=== PATIENT | male | born 1950 | race Caucasian/White ===

== ENCOUNTER 2019-04-07 09:07 | Day surgery (SDC) | payer MEDICARE, MEDICAID ==
[~2019-04-07] VITALS: Ht 167.6 cm; Wt 88.9 kg
[2019-04-07] MEDS ORDERED: GEMF600T5 PO (10:29)
[2019-04-07] MEDS ORDERED: BICT1TAB PO (10:29)
[2019-04-07] MEDS ORDERED: IBUP-2029 PO (10:29)
[2019-04-07] MEDS ORDERED: LIDOCAINE HCL 1% 20ML VIAL (Pyxis) INJ ONE (10:42)
[2019-04-07] MEDS ORDERED: FENTANYL CITRATE/PF 50MCG/ML 2ML VIAL ONE (10:42)
[2019-04-07] MEDS ORDERED: MIDAZOLAM HCL 2 MG/2 ML VIAL ONE (10:42)
[2019-04-07] MEDS ORDERED: IODIXANOL 320MG/ML 100 ML BOTTLE IV ONE (10:42)
[2019-04-07] MEDS ORDERED: ONDANSETRON HCL 4MG/2ML INJ IV PRN (11:45)
[2019-04-07] MEDS ORDERED: ACETAMINOPHEN 325MG TABLET PO PRN (11:45)
[2019-04-07] MEDS ORDERED: ATROPINE SULFATE 1MG/10ML SYR IV PRN (11:45)
[2019-04-07] MEDS ORDERED: NITROGLYCERIN 50MCG/ML 10ML VIAL (CATH LAB) IV ONE (15:59)
[2019-04-07] MEDS ORDERED: HEPARIN SODIUM 1,000 UNIT/1ML VIAL IV ONE (15:59)
[2019-04-07] MEDS ORDERED: NICARDIPINE 100MCG/ML 10ML VIAL (CATH LAB) IV ONE (15:59)
== END 2019-04-07 15:30 | disposition home or self-care (01) ==
LOC: CCL 09:07
PROVIDERS: ATTEND Specialist
DX: R07.89 Other chest pain (principal); R94.39 Abnormal result of other cardiovascular function study; I25.118 Atherosclerotic heart disease of native coronary artery with other forms of angina pectoris; I10 Essential (primary) hypertension; E78.5 Hyperlipidemia, unspecified; Z87.891 Personal history of nicotine dependence; Z79.899 Other long term (current) drug therapy; Z82.49 Family history of ischemic heart disease and other diseases of the circulatory system
CPT/HCPCS: 93458; C1769; C1887; C1893; J1644; J2250; J3010; J3490; Q9967